=== PATIENT | female | born 1980 | race Caucasian/White ===

== ENCOUNTER 2016-09-06 09:49 | Outpatient (RCR) | payer MEDICAID ==
--- OUTSIDE RECORDS SUMMARY | 2016-09-02 13:29 | XMS REPORT | Continuity of Care Document ---
Author Author [facility] Organization [facility] Address Unknown Phone Unavailable Care Team Providers Care Furniture Designer Name Role Phone ROSAURA MENDEZ PCP Insurance Providers Payer Name Policy Number Subscriber Name Relationship [employer] [id number] Saqib Avila 18 Self / Same As Patient Advance Directives Directive Response Recorded Date/Time Advance Directives No 05/18/15 8:22am Health Care Power of Border Machine Operator No 05/18/15 8:22am Organ Donor No 05/18/15 8:22am Resuscitation Status Full Code 05/18/15 8:22am Problems Medical Problems Problem Onset Date Status TOTAL THYROIDECTOMY 05/19/2015 Active Medications Medication Dose Route Sig Days/Qty Instructions Order Date Discontinued Date Status [Colon Clenz] 2 Tab PO DAILY 04/20/15 05/17/15 Discontinued Cefuroxime Axetil (Ceftin) 250 Mg PO TWICE A DAY 04/20/15 Active Phentermine Hcl 37.5 Mg PO DAILY 04/20/15 Active Mirabegron 25 Mg PO DAILY 04/20/15 Active Simethicone 360 Mg PO DAILY TAKE 2 (180MG) TABS 04/20/15 Active Omeprazole 20 Mg PO DAILY 05/04/15 Active Tramadol Hcl 50 Mg PO NEEDED PRN PAIN 30 Days 05/05/15 05/18/15 Discontinued Levothyroxine Sodium 112 Mcg PO DAILY 30 Qty 05/19/15 Active Tramadol Hcl 50 Mg PO THREE TIMES A DAY For Pain 30 Qty 05/19/15 Active Social History Social History Problem Response Recorded Date/Time Alcohol Use Denies Use 05/18/2015 8:22am Recreational Drug Use No 05/18/2015 8:22am Recent Foreign Travel No 05/18/2015 8:22am Smoking Status Former Smoker 05/18/2015 8:31am Query Response Start Date Stop Date Smoking Status Former Smoker 05/04/2010 Hospital Discharge Instructions No hospital discharge instructions. Plan of Care No plan of care. Functional Status Query Response Date Recorded Comprehension Ability Understands Concepts May 19, 2015 8:15am Allergies, Adverse Reactions, Alerts Allergen Type Severity Reaction Status Last Updated Tetracaine Allergy Severe ANAPHYLAXIS Active 05/18/15 Benzocaine Allergy Severe ANAPHYLAXIS Active 05/18/15 Butamben Allergy Severe ANAPHYLAXIS Active 05/18/15 Codeine Allergy Unknown MOM ALLERGIC, PT JUST AVOIDS IT Active 04/20/15 Talc Allergy Severe ANAPHYLAXIS Active 05/18/15 Immunizations No immunization records. Vital Signs Acute Vital Signs Vital Response Date/Time Temperature (Fahrenheit) 97.8 degrees F (97.6 - 99.5) Temperature (Calculated Celsius) 36.28031 degrees C (36.4 - 37.5) Temperature Source Temporal Pulse Rate (adult) 112 bpm (60 - 90) Respiratory Rate 18 bpm (12 - 24) O2 Sat by Pulse Oximetry 100 % (88 - 100) Blood Pressure 117/66 mm Hg Pain Pain Intensity 0 Height (Feet) 5 feet Height (Calculated Centimeters) 152.603798 cm Weight (Pounds) 260 pounds Weight (Calculated Grams) 125150.017 gm Weight (Calculated Kilograms) 117.785608 kilograms Calculated BMI 43.26 Results Laboratory Results Test Name Result Units Flags Reference Collection Date/Time Result Date/ Time Comments Calcium Level 9.0 MG/DL 8.5-10.1 05/05/2015 5:42am 05/05/2015 6:14am White Blood Count 7.7 10^3/uL 4.3-11.0 04/20/2015 2:50pm 04/20/2015 3: 13pm Red Blood Count 5.50 10^6/uL 4.35-5.85 04/20/2015 2:50pm 04/20/2015 3: 13pm Hemoglobin 14.5 G/DL 11.5-16.0 04/20/2015 2:50pm 04/20/2015 3:13pm Hematocrit 45 % 35-52 04/20/2015 2:50pm 04/20/2015 3:13pm Mean Corpuscular Volume 82 FL 80-99 04/20/2015 2:50pm 04/20/2015 3: 13pm Mean Corpuscular Hemoglobin 26 PG 25-34 04/20/2015 2:50pm 04/20/2015 3: 13pm Mean Corpuscular Hemoglobin Concent 32 G/DL 32-36 04/20/2015 2:50pm 3:13pm Red Cell Distribution Width 15.2 % H 10.0-14.5 04/20/2015 2:50pm 2014 3:13pm Platelet Count 250 10^3/uL 130-400 04/20/2015 2:50pm 04/20/2015 3:13pm Mean Platelet Volume 10.6 FL H 7.4-10.4 04/20/2015 2:50pm 04/20/2015 3: 13pm Neutrophils (%) (Auto) 66 % 42-75 04/20/2015 2:50pm 04/20/2015 3:13pm Lymphocytes (%) (Auto) 24 % 12-44 04/20/2015 2:50pm 04/20/2015 3:13pm Monocytes (%) (Auto) 7 % 0-12 04/20/2015 2:50pm 04/20/2015 3:13pm Eosinophils (%) (Auto) 3 % 0-10 04/20/2015 2:50pm 04/20/2015 3:13pm Basophils (%) (Auto) 1 % 0-10 04/20/2015 2:50pm 04/20/2015 3:13pm Neutrophils # (Auto) 5.0 X 10^3 1.8-7.8 04/20/2015 2:50pm 04/20/2015 3: 13pm Lymphocytes # (Auto) 1.9 X 10^3 1.0-4.0 04/20/2015 2:50pm 04/20/2015 3: 13pm Monocytes # (Auto) 0.5 X 10^3 0.0-1.0 04/20/2015 2:50pm 04/20/2015 3: 13pm Eosinophils # (Auto) 0.2 10^3/uL 0.0-0.3 04/20/2015 2:50pm 04/20/2015 3 :13pm Basophils # (Auto) 0.0 10^3/uL 0.0-0.1 04/20/2015 2:50pm 04/20/2015 3: 13pm Sodium Level 140 MMOL/L 135-145 04/20/2015 2:pm 04/20/2015 3:36pm Potassium Level 3.5 MMOL/L L 3.6-5.0 04/20/2015 2:5004/20/2015 3:36pm Chloride Level 106 MMOL/L 98-107 04/20/2015 2:50pm 04/20/2015 3:36pm Carbon Dioxide Level 21 MMOL/L 21-32 04/20/2015 2:50pm 04/20/2015 3: 36pm Blood Urea Nitrogen 14 MG/DL 7-18 04/20/2015 2:50pm 04/20/2015 3:36pm Creatinine 0.66 MG/DL 0.60-1.30 04/20/2015 2:5004/20/2015 3:36pm BUN/Creatinine Ratio 04/20/2015 2:5004/20/2015 3:36pm Estimat Glomerular Filtration Rate > 60 04/20/2015 2:502014 3:36pm GFR INTERPRETIVE DATA UNITS FOR ESTIMATED GFR (eGFR): mL/min/1.73 M2 REFERENCE RANGE FOR ESTIMATED GFR (eGFR) eGFR NORMAL eGFR >60 MODERATELY DECREASED eGFR 30-59 SEVERLY DECREASED eGFR 15-29 KIDNEY FAILURE <15 (OR DIALYSIS) Glucose Level 82 MG/DL 70-105 04/20/2015 2:04/20/2015 3:36pm Calcium Level 9.9 MG/DL 8.5-10.1 04/20/2015 2:04/20/2015 3:36pm Total Bilirubin 0.7 MG/DL 0.1-1.0 04/20/2015 2:5004/20/2015 3:36pm Alkaline Phosphatase 85 U/L 40-136 04/20/2015 2:50pm 04/20/2015 3:36pm Aspartate Amino Transf (AST/SGOT) 21 U/L 5-34 04/20/2015 2:50pm 2014 3:36pm Alanine Aminotransferase (ALT/SGPT) 23 U/L 0-55 04/20/2015 2:50pm 04/20 3:36pm Total Protein 8.3 G/DL H 6.4-8.2 04/20/2015 2:50pm 04/20/2015 3:36pm Albumin 4.5 G/DL 3.2-4.5 04/20/2015 2:50pm 04/20/2015 3:36pm Calcium Level 8.8 MG/DL 8.5-10.1 05/19/2015 5:58am 05/19/2015 6:33am Procedures Procedure Status Date Provider(s) PARTIAL REMOVAL OF THYROID completed 05/04/15 ANGELICA TREVIZO MD Thyroidectomy completed 05/18/15 ANGELICA TREVIZO MD Tracing only of electrocardiogram completed 04/20/15 ANGELICA TREVIZO MD Encounters Encounter Location Date/Time Departed [facility] 05/18/15 7:16am Registered Clinic Via [facility] 05/17/15 8:00am Departed [facility] 05/04/15 7:01am Registered Clinic [facility] 04/20/15 1:22pm Recent Diagnosis TOTAL THYROIDECTOMY
[~2016-09-06 09:49] MED LIST: CEFU250T11 PO; COLON CLENZ PO; LVT.112T PO; MIRA25TA PO; OMEP-10 PO; PHEN37.555 PO; SIME180C6 PO; THYROTROPIN 1.1 MG VIAL IM ONE; TRAM50TA2 PO
[2016-09-09 07:40] LABS: THYROGLOBULIN LEVELC 0.33 ng/mL (1.60-59.90)
[2016-09-09 17:20] LABS: THYROGLOBULIN AUTOANTIBODY PT 0.11 Units (0.00-0.50)
== END 2016-12-01 | disposition home or self-care (01) ==
LOC: ONC 09:49
PROVIDERS: ATTEND Radiology Radiation Oncology
DX: C73 Malignant neoplasm of thyroid gland (principal); Q05.9 Spina bifida, unspecified; N31.9 Neuromuscular dysfunction of bladder, unspecified; K21.9 Gastro-esophageal reflux disease without esophagitis; K59.00 Constipation, unspecified; Z99.3 Dependence on wheelchair; Z93.6 Other artificial openings of urinary tract status; Z79.899 Other long term (current) drug therapy
CPT/HCPCS: 36415; 84432; 86800; 96372

== ENCOUNTER 2016-10-31 10:14 | Outpatient (RCR) | payer MEDICAID ==
--- OUTSIDE RECORDS SUMMARY | 2016-09-12 10:05 | XMS REPORT | Continuity of Care Document ---
Author Author [facility] Organization [facility] Address Unknown Phone Unavailable Care Team Providers Care Animal Technician Name Role Phone ROSAURA MENDEZ PCP Insurance Providers Payer Name Policy Number Subscriber Name Relationship [employer] Amer[employer]p [id number] Saqib Avila 18 Self / Same As Patient Advance Directives Directive Response Recorded Date/Time Advance Directives No 05/18/15 8:22am Health Care Power of Blasting Coal Miner No 05/18/15 8:22am Organ Donor No 05/18/15 [...] F (97.6 - 99.5) Temperature (Calculated Celsius) 36.54040 degrees C (36.4 - 37.5) Temperature Source Temporal Pulse Rate (adult) 112 bpm (60 - 90) Respiratory Rate 18 bpm (12 - 24) O2 Sat by Pulse Oximetry 100 % (88 - 100) Blood Pressure 117/66 mm Hg Pain Pain Intensity 0 Height (Feet) 5 feet Height (Calculated Centimeters) 152.824369 cm Weight (Pounds) 260 pounds Weight (Calculated Grams) 546245.017 gm Weight (Calculated Kilograms) 117.080996 kilograms Calculated BMI 43.26 Results Laboratory Results [...] Location Date/Time Departed [facility] 05/18/15 7:16am Registered Clinic [facility] 05/17/15 8:00am Departed [facility] 05/04/15 7:01am Registered Clinic [facility] 04/20/15 1:22pm Recent Diagnosis TOTAL THYROIDECTOMY
[~2016-10-31 10:14] MED LIST changes: -THYROTROPIN 1.1 MG VIAL IM ONE
[2016-10-31 16:20] LABS: BASOPHILS # (AUTO) 0.1 10^3/uL (0.0-0.1); BASOPHILS % (AUTO) 1 % (0-10); EOSINOPHILS # (AUTO) 0.2 10^3/uL (0.0-0.3); EOSINOPHILS % (AUTO) 3 % (0-10); LYMPHOCYTES % (AUTO) 18 % (12-44); MEAN CORPUSCULAR HEMOGLOBIN 26 PG (25-34); MEAN CORPUSCULAR HGB CONC 32 G/DL (32-36); MEAN CORPUSCULAR VOLUME 81 FL (80-99); MONOCYTES # (AUTO) 0.4 X 10^3 (0.0-1.0); MONOCYTES % (AUTO) 7 % (0-12); NEUTROPHILS # (AUTO) 4.2 X 10^3 (1.8-7.8); NEUTROPHILS % (AUTO) 71 % (42-75); PLATELET COUNT 257 10^3/uL (130-400); RED BLOOD COUNT 5.11 10^6/uL (4.35-5.85); RED CELL DISTRIBUTION WIDTH 15.1 % (10.0-14.5); WHITE BLOOD COUNT 5.9 10^3/uL (4.3-11.0)
[2016-10-31 16:52] LABS: ALANINE AMINOTRANSFERASE 19 U/L (0-55); ALBUMIN 4.2 G/DL (3.2-4.5); ANION GAP 11 MMOL/L (5-14); ASPARTATE AMINO TRANSFERASE 18 U/L (5-34); BILIRUBIN,TOTAL 0.6 MG/DL (0.1-1.0); BLOOD UREA NITROGEN 10 MG/DL (7-18); BUN/CREATININE RATIO 15; CALCIUM 9.2 MG/DL (8.5-10.1); CARBON DIOXIDE 21 MMOL/L (21-32); CHLORIDE 105 MMOL/L (98-107); CREATININE SERUM 0.65 MG/DL (0.60-1.30); GFR ESTIMATED > 60; GLUCOSE 89 MG/DL (70-105); POTASSIUM 3.9 MMOL/L (3.6-5.0); SODIUM 137 MMOL/L (135-145); TOTAL PROTEIN 7.6 G/DL (6.4-8.2)
[2016-10-31 17:16] LABS: THYROID STIMULATING HORMONE 0.05 UIU/ML (0.35-4.94)
[2016-11-03 10:52] LABS: THYROGLOBULIN LEVELC <0.20 ng/mL (1.60-59.90)
[2016-11-05 07:56] LABS: THYROGLOBULIN AUTOANTIBODY PT 0.08 Units (0.00-0.50)
== END 2016-12-11 | disposition home or self-care (01) ==
LOC: PAR 10:14
PROVIDERS: ATTEND Internal Medicine Hematology & Oncology
DX: C73 Malignant neoplasm of thyroid gland (principal); Q05.9 Spina bifida, unspecified; N31.9 Neuromuscular dysfunction of bladder, unspecified; K21.9 Gastro-esophageal reflux disease without esophagitis; K59.00 Constipation, unspecified; Z99.3 Dependence on wheelchair; Z93.6 Other artificial openings of urinary tract status; Z79.899 Other long term (current) drug therapy
CPT/HCPCS: 36415; 80053; 84432; 84443; 85025; 86800; 99213

== ENCOUNTER 2017-03-06 13:23 | Outpatient (RCR) | payer MEDICAID ==
--- OUTSIDE RECORDS SUMMARY | 2017-01-02 11:28 | XMS REPORT | Continuity of Care Document ---
Author Author [facility] Organization [facility] Address Unknown Phone Unavailable Care Team Providers Care Interlibrary Loan Services Librarian Name Role Phone ROSAURA MENDEZ PCP Insurance Providers Payer Name Policy Number Subscriber Name Relationship [employer] Amer[employer]p [id number] Saqib Avila 18 Self / Same As Patient Advance Directives Directive Response Recorded Date/Time Advance Directives No 05/18/15 8:22am Health Care Power of Gericare Aide Teacher No 05/18/15 8:22am Organ Donor No 05/18/15 [...] F (97.6 - 99.5) Temperature (Calculated Celsius) 36.00826 degrees C (36.4 - 37.5) Temperature Source Temporal Pulse Rate (adult) 112 bpm (60 - 90) Respiratory Rate 18 bpm (12 - 24) O2 Sat by Pulse Oximetry 100 % (88 - 100) Blood Pressure 117/66 mm Hg Pain Pain Intensity 0 Height (Feet) 5 feet Height (Calculated Centimeters) 152.852455 cm Weight (Pounds) 260 pounds Weight (Calculated Grams) 874338.017 gm Weight (Calculated Kilograms) 117.160330 kilograms Calculated BMI 43.26 Results Laboratory Results [...] Location Date/Time Departed [facility] 05/18/15 7:16am Registered Clinic [facility] 05/17/15 8:00am Departed Surgical [facility] 05/04/15 7:01am Registered Clinic [facility] 04/20/15 1:22pm Recent Diagnosis TOTAL THYROIDECTOMY
[2017-01-02 15:55] LABS: BASOPHILS # (AUTO) 0.1 10^3/uL (0.0-0.1); BASOPHILS % (AUTO) 1 % (0-10); EOSINOPHILS # (AUTO) 0.2 10^3/uL (0.0-0.3); EOSINOPHILS % (AUTO) 4 % (0-10); LYMPHOCYTES % (AUTO) 16 % (12-44); MEAN CORPUSCULAR HEMOGLOBIN 26 PG (25-34); MEAN CORPUSCULAR HGB CONC 32 G/DL (32-36); MEAN CORPUSCULAR VOLUME 81 FL (80-99); MEAN PLATELET VOLUME 9.6 FL (7.4-10.4); MONOCYTES # (AUTO) 0.5 X 10^3 (0.0-1.0); MONOCYTES % (AUTO) 7 % (0-12); NEUTROPHILS # (AUTO) 4.7 X 10^3 (1.8-7.8); NEUTROPHILS % (AUTO) 72 % (42-75); PLATELET COUNT 260 10^3/uL (130-400); RED BLOOD COUNT 4.91 10^6/uL (4.35-5.85); RED CELL DISTRIBUTION WIDTH 15.7 % (10.0-14.5); WHITE BLOOD COUNT 6.4 10^3/uL (4.3-11.0)
[2017-01-02 16:53] LABS: ALANINE AMINOTRANSFERASE 15 U/L (0-55); ALBUMIN 4.1 G/DL (3.2-4.5); ANION GAP 11 MMOL/L (5-14); ASPARTATE AMINO TRANSFERASE 15 U/L (5-34); BILIRUBIN,TOTAL 0.5 MG/DL (0.1-1.0); BLOOD UREA NITROGEN 12 MG/DL (7-18); BUN/CREATININE RATIO 17; CALCIUM 8.7 MG/DL (8.5-10.1); CARBON DIOXIDE 21 MMOL/L (21-32); CHLORIDE 105 MMOL/L (98-107); CREATININE SERUM 0.69 MG/DL (0.60-1.30); GFR ESTIMATED > 60; GLUCOSE 74 MG/DL (70-105); SODIUM 137 MMOL/L (135-145); TOTAL PROTEIN 7.5 G/DL (6.4-8.2)
[2017-01-02 17:14] LABS: THYROID STIMULATING HORMONE 0.15 UIU/ML (0.35-4.94)
[2017-01-03 07:39] LABS: THYROGLOBULIN LEVELC <0.20 ng/mL (1.60-59.90)
[2017-03-06 16:16] LABS: BASOPHILS # (AUTO) 0.1 10^3/uL (0.0-0.1); BASOPHILS % (AUTO) 1 % (0-10); EOSINOPHILS # (AUTO) 0.3 10^3/uL (0.0-0.3); EOSINOPHILS % (AUTO) 5 % (0-10); LYMPHOCYTES # (AUTO) 1.3 X 10^3 (1.0-4.0); LYMPHOCYTES % (AUTO) 25 % (12-44); MEAN CORPUSCULAR HEMOGLOBIN 25 PG (25-34); MEAN CORPUSCULAR HGB CONC 32 G/DL (32-36); MEAN CORPUSCULAR VOLUME 79 FL (80-99); MEAN PLATELET VOLUME 10.1 FL (7.4-10.4); MONOCYTES # (AUTO) 0.5 X 10^3 (0.0-1.0); MONOCYTES % (AUTO) 10 % (0-12); NEUTROPHILS % (AUTO) 58 % (42-75); PLATELET COUNT 250 10^3/uL (130-400); RED BLOOD COUNT 4.64 10^6/uL (4.35-5.85); RED CELL DISTRIBUTION WIDTH 16.4 % (10.0-14.5); WHITE BLOOD COUNT 5.2 10^3/uL (4.3-11.0)
[2017-03-06 16:50] LABS: ALANINE AMINOTRANSFERASE 15 U/L (0-55); ALBUMIN 3.8 G/DL (3.2-4.5); ANION GAP 11 MMOL/L (5-14); ASPARTATE AMINO TRANSFERASE 13 U/L (5-34); BILIRUBIN,TOTAL 0.3 MG/DL (0.1-1.0); BLOOD UREA NITROGEN 18 MG/DL (7-18); BUN/CREATININE RATIO 27; CALCIUM 8.7 MG/DL (8.5-10.1); CARBON DIOXIDE 21 MMOL/L (21-32); CHLORIDE 110 MMOL/L (98-107); CREATININE SERUM 0.67 MG/DL (0.60-1.30); GFR ESTIMATED > 60; GLUCOSE 79 MG/DL (70-105); POTASSIUM 3.3 MMOL/L (3.6-5.0); SODIUM 142 MMOL/L (135-145); TOTAL PROTEIN 7.1 G/DL (6.4-8.2)
[2017-03-06 17:17] LABS: THYROID STIMULATING HORMONE 0.36 UIU/ML (0.35-4.94)
[2017-03-10 07:47] LABS: THYROGLOBULIN LEVELC 0.38 ng/mL (1.60-59.90)
[2017-03-10 15:46] LABS: THYROGLOBULIN AUTOANTIBODY PT 0.09 Units (0.00-0.50)
== END 2017-04-02 | disposition home or self-care (01) ==
LOC: PAR 13:23
PROVIDERS: ATTEND Internal Medicine Hematology & Oncology
DX: C73 Malignant neoplasm of thyroid gland (principal); Q05.9 Spina bifida, unspecified; N31.9 Neuromuscular dysfunction of bladder, unspecified; K21.9 Gastro-esophageal reflux disease without esophagitis; K59.00 Constipation, unspecified; Z99.3 Dependence on wheelchair; Z93.6 Other artificial openings of urinary tract status; Z79.899 Other long term (current) drug therapy
CPT/HCPCS: 36415; 80053; 84432; 84443; 85025; 86800; 99213

== ENCOUNTER 2017-07-17 14:44 | Outpatient (RCR) | payer MEDICAID ==
[2017-05-01 16:23] LABS: BASOPHILS % (AUTO) 1 % (0-10); EOSINOPHILS # (AUTO) 0.2 10^3/uL (0.0-0.3); EOSINOPHILS % (AUTO) 3 % (0-10); LYMPHOCYTES # (AUTO) 1.2 X 10^3 (1.0-4.0); LYMPHOCYTES % (AUTO) 21 % (12-44); MEAN CORPUSCULAR HEMOGLOBIN 25 PG (25-34); MEAN CORPUSCULAR HGB CONC 32 G/DL (32-36); MEAN CORPUSCULAR VOLUME 79 FL (80-99); MEAN PLATELET VOLUME 9.8 FL (7.4-10.4); MONOCYTES # (AUTO) 0.3 X 10^3 (0.0-1.0); MONOCYTES % (AUTO) 6 % (0-12); NEUTROPHILS % (AUTO) 70 % (42-75); PLATELET COUNT 333 10^3/uL (130-400); RED BLOOD COUNT 4.76 10^6/uL (4.35-5.85); RED CELL DISTRIBUTION WIDTH 15.9 % (10.0-14.5); WHITE BLOOD COUNT 5.7 10^3/uL (4.3-11.0)
[2017-05-01 16:57] LABS: ALANINE AMINOTRANSFERASE 22 U/L (0-55); ALBUMIN 3.9 G/DL (3.2-4.5); ANION GAP 10 MMOL/L (5-14); ASPARTATE AMINO TRANSFERASE 18 U/L (5-34); BILIRUBIN,TOTAL 0.3 MG/DL (0.1-1.0); BLOOD UREA NITROGEN 13 MG/DL (7-18); BUN/CREATININE RATIO 21; CARBON DIOXIDE 22 MMOL/L (21-32); CHLORIDE 107 MMOL/L (98-107); CREATININE SERUM 0.61 MG/DL (0.60-1.30); GFR ESTIMATED > 60; GLUCOSE 91 MG/DL (70-105); POTASSIUM 4.2 MMOL/L (3.6-5.0); SODIUM 139 MMOL/L (135-145); TOTAL PROTEIN 7.8 G/DL (6.4-8.2)
[2017-05-01 17:18] LABS: THYROID STIMULATING HORMONE 0.04 UIU/ML (0.35-4.94)
[2017-05-05 17:24] LABS: THYROGLOBULIN AUTOANTIBODY PT 0.11 Units (0.00-0.50)
[2017-05-06 07:35] LABS: THYROGLOBULIN LEVELC <0.20 ng/mL (1.60-59.90)
[2017-07-17 16:22] LABS: BASOPHILS % (AUTO) 1 % (0-10); EOSINOPHILS # (AUTO) 0.3 10^3/uL (0.0-0.3); EOSINOPHILS % (AUTO) 5 % (0-10); LYMPHOCYTES # (AUTO) 1.2 X 10^3 (1.0-4.0); LYMPHOCYTES % (AUTO) 21 % (12-44); MEAN CORPUSCULAR HEMOGLOBIN 25 PG (25-34); MEAN CORPUSCULAR HGB CONC 32 G/DL (32-36); MEAN CORPUSCULAR VOLUME 78 FL (80-99); MEAN PLATELET VOLUME 9.7 FL (7.4-10.4); MONOCYTES # (AUTO) 0.6 X 10^3 (0.0-1.0); MONOCYTES % (AUTO) 10 % (0-12); NEUTROPHILS # (AUTO) 3.6 X 10^3 (1.8-7.8); NEUTROPHILS % (AUTO) 64 % (42-75); PLATELET COUNT 331 10^3/uL (130-400); RED CELL DISTRIBUTION WIDTH 16.2 % (10.0-14.5); WHITE BLOOD COUNT 5.7 10^3/uL (4.3-11.0)
[2017-07-17 16:46] LABS: ALANINE AMINOTRANSFERASE 15 U/L (0-55); ALBUMIN 3.7 GM/DL (3.2-4.5); ANION GAP 9 MMOL/L (5-14); ASPARTATE AMINO TRANSFERASE 13 U/L (5-34); BILIRUBIN,TOTAL 0.3 MG/DL (0.1-1.0); BLOOD UREA NITROGEN 12 MG/DL (7-18); BUN/CREATININE RATIO 17; CALCIUM 9.2 MG/DL (8.5-10.1); CARBON DIOXIDE 24 MMOL/L (21-32); CHLORIDE 108 MMOL/L (98-107); CREATININE SERUM 0.71 MG/DL (0.60-1.30); GFR ESTIMATED > 60; GLUCOSE 92 MG/DL (70-105); SODIUM 141 MMOL/L (135-145); TOTAL PROTEIN 7.8 GM/DL (6.4-8.2)
[2017-07-17 17:12] LABS: THYROID STIMULATING HORMONE 0.02 UIU/ML (0.35-4.94)
[2017-07-21 08:08] LABS: THYROGLOBULIN LEVELC <0.20 ng/mL (1.60-59.90)
[2017-07-21 15:37] LABS: THYROGLOBULIN AUTOANTIBODY PT 0.11 Units (0.00-0.50)
== END 2017-07-30 | disposition home or self-care (01) ==
LOC: PAR 14:44
PROVIDERS: ATTEND Internal Medicine Hematology & Oncology
DX: C73 Malignant neoplasm of thyroid gland (principal); Q05.9 Spina bifida, unspecified; N31.9 Neuromuscular dysfunction of bladder, unspecified; K21.9 Gastro-esophageal reflux disease without esophagitis; K59.00 Constipation, unspecified; Z99.3 Dependence on wheelchair; Z93.6 Other artificial openings of urinary tract status; Z79.899 Other long term (current) drug therapy
CPT/HCPCS: 36415; 80053; 84432; 84443; 85025; 86800; 99213